=== PATIENT | male | born 1985 | race Caucasian/White ===

== ENCOUNTER 2024-08-01 16:33 | Emergency (ER) | payer OTHER ==
[2024-08-01] MEDS ORDERED: AMOX/K CLAV 875 MG TAB ONE (17:09)
[2024-08-01] MEDS ORDERED: TDAP (DIPHTH,PERTUSS(ACELL),TET VAC) 0.5 ML VIAL IMVAC ONE (17:09)
[2024-08-01] MEDS ORDERED: LIDOCAINE 1% MPF 5 ML VIAL ONE (17:26)
[2024-08-01] MEDS ORDERED: BUPIVACAINE 0.5% PF 10 ML VIAL ONE (17:26)
--- NOTE | 2024-08-01 18:30 | ER ---
Nurse's Notes [facility] Name: Clemente Brito Age: 38 yrs Sex: Male : 1985 Arrival Date: 08/01/2024 Time: 16:33 Bed 13 Private MD: Diagnosis: Left finger laceration contaminated, vasovagal syncope, repair of laceration 3 cm Presentation: 08/01 16:39 Chief complaint: Patient states: laceration to left index finger. pt states after he cm10 cut himself he had a syncopal episode. pt's states that pt was sitting down when he just bent forward. Pt complaining of dizziness at this time. Coronavirus screen: Client denies travel out of the [place] in the last 14 days. Ebola Screen: Patient denies travel to an Ebola-affected area in the 21 days before illness onset. No symptoms or risks identified at this time. Complicating Factors: There are no complicating factors for this patient. Initial Sepsis Screen: Does the patient meet any 2 criteria? No. Patient's initial sepsis screen is negative. Does the patient have a suspected source of infection? No. Patient's initial sepsis screen is negative. Risk Assessment: Do you want to hurt yourself or someone else? Patient reports no desire to harm self or others. 16:39 Method Of Arrival: Ambulatory [facility] 16:39 Acuity: NYDIA 3 10 16:41 Onset of symptoms was August 01, 2024. 10 Triage Assessment: 16:42 General: Appears in no apparent distress. uncomfortable, Behavior is calm, cooperative. cm10 Neuro: No deficits noted. Level of Consciousness is awake, alert, obeys commands, Oriented to person, place, time, situation, Appropriate for age. Respiratory: No deficits noted. Airway is patent Respiratory effort is even, unlabored, Respiratory pattern is regular, symmetrical. Historical: - Allergies: 16:41 No Known Allergies; cm10 - PMHx: 16:41 Hypertensive disorder; GERD; Hypercholesterolemia; cm10 - Immunization history:: Adult Immunizations unknown, Last tetanus immunization: < 5 years ago. - Infectious Disease History:: Denies. - Social history:: Smoking status: Reported history of juuling and/or vaping. Screenin:45 [facility] ED Fall Risk Assessment (Adult) History of falling in the last 3 months, rs5 including since admission No falls in past 3 months (0 pts) Confusion or Disorientation No (0 pts) Intoxicated or Sedated No (0 pts) Impaired Gait No (0 pts) Mobility Assist Device Used No (0 pt) Altered Elimination No (0 pt) Score/Fall Risk Level 0 - 2 = Low Risk Oriented to surroundings, Maintained a safe environment. Abuse screen: Denies threats or abuse. Nutritional screening: No deficits noted. Tuberculosis screening: No symptoms or risk factors identified. Assessment: 16:45 General: Appears in no apparent distress. uncomfortable, Behavior is calm, cooperative. rs5 Pain: Complains of pain in left index finger Pain currently is 6 out of 10 on a pain scale. Quality of pain is described as aching, Is continuous. 16:45 Neuro: Level of Consciousness is awake, alert, obeys commands, Oriented to person, rs5 place, time, situation. Cardiovascular: Patient's skin is warm and dry. Respiratory: Airway is patent Respiratory effort is even, unlabored, Respiratory pattern is regular, symmetrical. GI: Abdomen is round non-distended, Abd is soft and non tender X 4 quads. : No signs and/or symptoms were reported regarding the genitourinary system. EENT: No signs and/or symptoms were reported regarding the EENT system. Derm: Wound noted Other: lac noted to left index finger, no active bleeding noted. Musculoskeletal: Range of motion: limited in left hand. 17:55 Reassessment: Patient and/or family updated on plan of care and expected duration. Pain rs5 level reassessed. Patient is alert, oriented x 3, equal unlabored respirations, skin warm/dry/pink. 18:58 Reassessment: Patient and/or family updated on plan of care and expected duration. Pain rs5 level reassessed. Patient is alert, oriented x 3, equal unlabored respirations, skin warm/dry/pink. Vital Signs: 16:39 BP 111 / 76; Pulse 63; Resp 16; Temp 97.8(O); Pulse Ox 100% ; Weight 81.65 kg; Height 5 cm10 ft. 10 in. ; Pain 8/10; 18:12 BP 115 / 74; Pulse 71; Resp 16; Pulse Ox 98% on R/A; rs5 18:58 BP 121 / 77; Pulse 74; Resp 17; Pulse Ox 99% on R/A; rs5 16:39 Body Mass Index 25.83 (81.65 kg, 177.8 cm) cm10 16:39 Pain Scale: Adult cm10 ED Course: 16:35 Patient arrived in ED. ra3 16:36 Jonathan Lockett MD is Attending Physician. sp3 16:41 Triage completed. cm10 16:42 Arm band placed on right wrist. Patient placed in an exam room, on a stretcher. cm10 16:45 Patient has correct armband on for positive identification. Bed in low position. Call rs5 light in reach. Side rails up X2. 16:45 No provider procedures requiring assistance completed. rs5 16:52 Maged Mohr, PAVEL is Primary Nurse. rs5 17:08 EKG done, by ED staff, reviewed by Jonathan Lockett MD. em1 18:59 Patient did not have IV access during this emergency room visit. hb Administered Medications: 17:20 Drug: Amoxicillin-Clavulanate PO 875 mg PO once Route: PO; rs5 18:12 Follow up: Response: No adverse reaction rs5 17:34 Not Given (Patient Objection): tetanus toxoid,adsorbed0.5 ml IM once; Provide Vaccine rs5 Information Statement (VIS). 17:41 Drug: Bupivacaine Infiltration (0.5 %) 10 ml 10 ml Infiltration once {Note: adm by rs5 provider at bedside .} Volume: 10 ml; Route: Infiltration; 18:13 Follow up: Response: No adverse reaction rs5 17:42 Drug: Lidocaine Infiltration (1 %) 10 ml 5 ml Infiltration once; to bedside {Note: adm rs5 .} Volume: 5 ml; Route: Infiltration; 18:12 Follow up: Response: No adverse reaction rs5 Medication: 18:12 VIS not applicable for this client. rs5 Outcome: 18:29 Discharge ordered by . sp3 18:59 Discharged to home ambulatory, with family, 18:59 Condition: stable 18:59 Discharge instructions given to patient, family, Instructed on discharge instructions, follow up and referral plans. medication usage, wound care, Demonstrated understanding of instructions, follow-up care, medications, wound care, Prescriptions given X 1, 18:59 Patient left the ED. hb Signatures: Renzo So em1 Rhiannon Badillo, RN RN Jonathan Lockett MD MD sp3 Maged Mohr, RN RN rs5 Leslie So RN RN cm10 Yanique Murillo ra3 Corrections: (The following items were deleted from the chart) 16:42 16:41 Allergies: Aspirin; cm10 cm10 18:11 16:45 Pain: Complains of pain in left hand rs5 rs5
--- NOTE | 2024-08-01 18:30 | EDPHYS ---
Physician Documentation [facility] Name: Clemente Brito Age: 38 yrs Sex: Male : 1985 Arrival Date: 08/01/2024 Time: 16:33 Bed 13 Private MD: ED Physician Jonathan Lockett HPI: 08/01 17:05 This 38 yrs old Male presents to ER via Ambulatory with complaints of Passed Out Prior sp3 To Arrival, Laceration. 17:05 38-year-old male with history of hypertension hyperlipidemia now presents to the ED sp3 with left index finger laceration and syncopal episode after the [place] on the boat. Patient states that he was just overwhelmed with shock in the side of blood and passed out for a few seconds. No significant injury, head injury or other medical prodromal event prior to the incident. He denies current weakness, dizziness, feelings of syncope/near syncope, chest pain, shortness of breath, abdominal pain, vomiting, diarrhea or any other signs or symptoms on ROS at this time.. Historical: - Allergies: 16:41 No Known Allergies; cm10 - PMHx: 16:41 Hypertensive disorder; GERD; Hypercholesterolemia; cm10 - Immunization history:: Adult Immunizations unknown, Last tetanus immunization: < 5 years ago. - Infectious Disease History:: Denies. - Social history:: Smoking status: Reported history of juuling and/or vaping. ROS: 17:06 Constitutional: Negative for fever, chills, and weight loss, Eyes: Negative for injury, sp3 pain, redness, and discharge, ENT: Negative for injury, pain, and discharge, Neck: Negative for injury, pain, and swelling, Respiratory: Negative for shortness of breath, cough, wheezing, and pleuritic chest pain, Abdomen/GI: Negative for abdominal pain, nausea, vomiting, diarrhea, and constipation, Back: Negative for injury and pain, Skin: Negative for injury, rash, and discoloration, Psych: Negative for depression, anxiety, suicide ideation, homicidal ideation, and hallucinations, Allergy/Immunology: Negative for hives, rash, and allergies, Endocrine: Negative for neck swelling, polydipsia, polyuria, polyphagia, and marked weight changes, Hematologic/Lymphatic: Negative for swollen nodes, abnormal bleeding, and unusual bruising, 17:06 All other systems are negative, Exam: 17:06 Constitutional: This is a well developed, well nourished patient who is awake, alert, sp3 and in no acute distress. Head/Face: Normocephalic, atraumatic. Eyes: Pupils equal round and reactive to light, extra-ocular motions intact. Lids and lashes normal. Conjunctiva and sclera are non-icteric and not injected. Cornea within normal limits. Periorbital areas with no swelling, redness, or edema. ENT: Nares patent. No nasal discharge, no septal abnormalities noted. External auditory canals are clear. Oropharynx with no redness, swelling, or masses, exudates, or evidence of obstruction, uvula midline. Mucous membranes moist. Neck: Trachea midline, no thyromegaly or masses palpated, and no cervical lymphadenopathy. Supple, full range of motion without nuchal rigidity, or vertebral point tenderness. No Meningismus. Chest/axilla: Normal chest wall appearance and motion. Nontender with no deformity. No lesions are appreciated. Cardiovascular: Regular rate and rhythm with a normal S1 and S2. No gallops, murmurs, or rubs. Normal PMI, no JVD. No pulse deficits. Respiratory: Lungs have equal breath sounds bilaterally, clear to auscultation and percussion. No rales, rhonchi or wheezes noted. No increased work of breathing, no retractions or nasal flaring. Abdomen/GI: Soft, non-tender, with normal bowel sounds. No distension or tympany. No guarding or rebound. No evidence of tenderness throughout. Back: No spinal tenderness. No costovertebral tenderness. Full range of motion. Neuro: Awake and alert, GCS 15, oriented to person, place, time, and situation. Cranial nerves II-XII grossly intact. Motor strength 5/5 in all extremities. Sensory grossly intact. Cerebellar exam normal. Normal gait. Psych: Awake, alert, with orientation to person, place and time. Behavior, mood, and affect are within normal limits. 17:06 Musculoskeletal/extremity: 3 cm laceration in a helical motion/pattern from left index finger top of nailbed wrapping laterally around the finger in a helical fashion. No concern of foreign body or fracture noted. Patient believes it was the hook while fishing and it occurred while cleaning the fish.. 17:09 ECG was reviewed by the Attending Physician. EKG demonstrates sinus bradycardia at 54 sp3 bpm with normal intervals, normal QRS, normal axis, normal ST/T-segment's without evidence of acute ischemia. Vital Signs: 16:39 BP 111 / 76; Pulse 63; Resp 16; Temp 97.8(O); Pulse Ox 100% ; Weight 81.65 kg; Height 5 cm10 ft. 10 in. ; Pain 8/10; 18:12 BP 115 / 74; Pulse 71; Resp 16; Pulse Ox 98% on R/A; rs5 18:58 BP 121 / 77; Pulse 74; Resp 17; Pulse Ox 99% on R/A; rs5 16:39 Body Mass Index 25.83 (81.65 kg, 177.8 cm) cm10 16:39 Pain Scale: Adult cm10 MDM: 16:51 Medical Screening Exam initiated sp3 17:07 Data reviewed: vital signs, nurses notes, EKG. ED course: 38-year-old male with salt sp3 water laceration and patient contaminated laceration to left finger and subsequent vasovagal syncope now resolved. Wound will be cleaned, repaired and placed on antibiotics. EKG pending regarding the syncope however I do not believe patient had a cardiac or neurological event. Patient has normal neurological exam with normal vital signs currently. No further workup indicated for that portion. Tetanus will also be updated. Patient will be discharged once laceration repair is complete by physician assistant pressman.. 08/01 16:51 Order name: EKG; Complete Time: 16:51 sp3 08/01 16:51 Order name: EKG - Nurse/Tech; Complete Time: 17:08 sp3 Administered Medications: 17:20 Drug: Amoxicillin-Clavulanate PO 875 mg PO once Route: PO; rs5 18:12 Follow up: Response: No adverse reaction rs5 17:34 Not Given (Patient Objection): tetanus toxoid,adsorbed0.5 ml IM once; Provide Vaccine rs5 Information Statement (VIS). 17:41 Drug: Bupivacaine Infiltration (0.5 %) 10 ml 10 ml Infiltration once {Note: adm by rs5 provider at bedside .} Volume: 10 ml; Route: Infiltration; 18:13 Follow up: Response: No adverse reaction rs5 17:42 Drug: Lidocaine Infiltration (1 %) 10 ml 5 ml Infiltration once; to bedside {Note: adm rs5 .} Volume: 5 ml; Route: Infiltration; 18:12 Follow up: Response: No adverse reaction rs5 Disposition Summary: 08/01/24 18:29 Discharge Ordered Notes: Location: Home sp3 Condition: Stable sp3 Diagnosis - Left finger laceration contaminated, vasovagal syncope, repair of laceration 3 cm sp3 Followup: sp3 - With: Private Physician - When: Upon discharge from the Emergency Department - Reason: Recheck today's complaints Discharge Instructions: - Discharge Summary Sheet sp3 - Laceration Care, Adult sp3 - Syncope sp3 Forms: - Medication Reconciliation Form sp3 - Antibiotic Education sp3 - Prescription Opioid Use sp3 - Patient Portal Instructions sp3 - Leadership Thank You Letter sp3 Prescriptions: - Augmentin 875-125 mg Oral Tablet - take 1 tablet ORAL route every 12 hours for 10 days; 20 tablet; Refills: 0, sp3 Product Selection Permitted Signatures: Jr Lee PA PA cp Patel, Setul, MD MD sp3 Maged Mohr RN RN rs5 Leslie So RN RN cm10 Corrections: (The following items were deleted from the chart) 16:42 16:41 Allergies: Aspirin; cm10 cm10
[2024-08-01 19:49] VITALS: TEMP 97.8
[2024-08-01 19:57] VITALS: BP 121/77; O2SAT 99
--- NOTE | 2024-08-03 13:08 | EKG ---
Test Date: 2024-08-01 Test Time: 17:06:17 General Production Laborer: JAQUAN MEASUREMENT RESULTS: Intervals: Rate: 54 MA: 110 QRSD: 86 QT: 416 QTc: 394 [place]: P: 60 MA: 110 QRS: 24 T: 17 INTERPRETIVE STATEMENTS: Sinus bradycardia with short MA Otherwise normal ECG No previous ECG available for comparison Electronically Signed On 08-03-24 13:04:37 CARGOMAN by Josse Meza
== END 2024-08-01 18:59 | disposition home or self-care (01) ==
LOC: ER 16:33
PROC: 0XQ Anatomical Regions, Upper Extremities, Repair (ICD-10-PCS; principal; 2024-08-01)
DX: S61.211A Laceration without foreign body of left index finger without damage to nail, initial encounter (principal); R41.82 Altered mental status, unspecified; I10 Essential (primary) hypertension; K21.9 Gastro-esophageal reflux disease without esophagitis; E78.00 Pure hypercholesterolemia, unspecified; W26.9XXA Contact with unspecified sharp object(s), initial encounter; Y93.89 Activity, other specified; Y92.814 Boat as the place of occurrence of the external cause; Y99.9 Unspecified external cause status
CPT/HCPCS: 93005; 99284; 12002; J2003